=== PATIENT | female | born 1960 | race Caucasian/White ===

== ENCOUNTER 2021-04-13 07:44 | Emergency (ER) | payer OTHER ==
[~2021-04-13 07:44] MED LIST: CERTAGEN1 EACH PO; FERROUS SULFAT325 MG PO; FIORICET 50-301 EACH PO; LAXATIVE5 M1 PO; MOBIC7.5 MG PO; PERCOCET 5/3251 TAB PO; PRILOSEC20 MG PO; SYNTHROID75 MCG PO; ULTRAM50 MG PO; VITAMIN D250000 UNIT PO; XARELTO10 MG PO
[2021-04-13 08:37] LABS: BASOPHIL 0.8 % (0-2); EOSINOPHIL 1.8 % (0-5); LYMPHOCYTE 14.1 % (15-48); MCH 27.6 pg (25.0-31.0); MCHC 33.3 g/dL (32.0-36.0); MCV 82.9 fL (78.0-100.0); MONOCYTE 8.8 % (0-12); MPV 9.3 fL (6.0-9.5); NRBC 0; PLT 312 K/uL (150-400); RBC 5.43 M/uL (4.20-5.40); WBC 10.2 K/uL (4.0-10.5)
[2021-04-13 08:49] LABS: ALBUMIN 3.9 g/dL (3.4-5.0); BUN/CREAT RATIO (CALC) 22.7 RATIO; CREATININE 0.66 mg/dL (0.51-0.95); GLOBULIN (CALCULATION) 4.1 g/dL; POTASSIUM 4.1 mmol/L (3.5-5.1)
[2021-04-13] MEDS ORDERED: NORCO 5-325 TA1 EACH PO (09:50)
[2021-04-13] MEDS ORDERED: ONDANSETRON ODT4 MG PO (09:50)
== END 2021-04-13 12:41 | disposition home or self-care (01) ==
LOC: FER 07:44
PROVIDERS: Emergency Medicine
DX: K80.20 Calculus of gallbladder without cholecystitis without obstruction (principal)
CPT/HCPCS: 36415; 80053; 82150; 83690; 85025; J2270; J2405

== ENCOUNTER 2021-05-22 04:40 | Inpatient (IN) | payer OTHER ==
[~2021-05-22] VITALS: Ht 165.1 cm; Wt 91.8 kg
[~2021-05-22 04:40] MED LIST changes: +BAYER PLUS 500500 MG PO; +ESTRADIOL1 EA10 TD; +HCTZ25 MG PO; +NORCO 5-325 TA1 EACH PO; +OMEPRAZOLE40 MG PO; +ONDANSETRON ODT4 MG PO; +POTASSIUM20 MEQ/11 PO; -PRILOSEC20 MG PO; +SYNTHROID50 MCG PO; -SYNTHROID75 MCG PO
[2021-05-22 05:23] LABS: BASOPHIL 0.5 % (0-2); EOSINOPHIL 0.4 % (0-5); HCT 46.4 % (37.0-47.0); HGB 15.5 g/dl (12.5-16.0); LYMPHOCYTE 11.7 % (15-48); MCH 27.6 pg (25.0-31.0); MCHC 33.4 g/dL (32.0-36.0); MCV 82.6 fL (78.0-100.0); MONOCYTE 5.7 % (0-12); MPV 9.7 fL (6.0-9.5); NEUTROPHIL 81.4 % (41-80); NRBC 0; PLT 344 K/uL (150-400); RBC 5.62 M/uL (4.20-5.40); RDW 13.9 % (11.5-14.0); WBC 12.8 K/uL (4.0-10.5)
[2021-05-22 05:35] LABS: ALKALINE PHOSHATASE 166 U/L (46-116); ALT 429 U/L (14-59); AST 452 U/L (15-37); BILIRUBIN - TOTAL 2.5 mg/dL (0.2-1.0); BUN 16 mg/dL (7-18); BUN/CREAT RATIO (CALC) 25.4 RATIO; CHLORIDE 96 mmol/L (98-107); CO2 (BICARBONATE) 32 mmol/L (21-32); CREATININE 0.63 mg/dL (0.51-0.95); GLOBULIN (CALCULATION) 4.2 g/dL; GLUCOSE 103 mg/dL (74-106); LIPASE >2250 U/L (73-393); POTASSIUM 3.5 mmol/L (3.5-5.1); TOTAL PROTEIN 8.2 g/dL (6.4-8.2)
[2021-05-22 08:03] LABS: ALBUMIN 3.5 g/dL (3.4-5.0); BILIRUBIN - TOTAL 1.5 mg/dL (0.2-1.0); BUN/CREAT RATIO (CALC) 27.1 RATIO; CREATININE 0.59 mg/dL (0.51-0.95); GLOBULIN (CALCULATION) 3.6 g/dL; POTASSIUM 3.3 mmol/L (3.5-5.1); TOTAL PROTEIN 7.1 g/dL (6.4-8.2)
[2021-05-22] MEDS ORDERED: TRAMADOL HCL50 MG PO (12:47)
[2021-05-22] MEDS ORDERED: PRILOSEC20 MG PO (12:48)
[2021-05-23 06:50] LABS: BASOPHIL 1.3 % (0-2); EOSINOPHIL 2.5 % (0-5); HCT 38.3 % (37.0-47.0); HGB 12.5 g/dl (12.5-16.0); LYMPHOCYTE 27.4 % (15-48); MCH 27.5 pg (25.0-31.0); MCHC 32.6 g/dL (32.0-36.0); MCV 84.2 fL (78.0-100.0); MONOCYTE 8.2 % (0-12); MPV 9.4 fL (6.0-9.5); NEUTROPHIL 60.2 % (41-80); NRBC 0; PLT 254 K/uL (150-400); RBC 4.55 M/uL (4.20-5.40); RDW 14.4 % (11.5-14.0); WBC 6.8 K/uL (4.0-10.5)
[2021-05-23 07:20] LABS: ALBUMIN 2.8 g/dL (3.4-5.0); BILIRUBIN - TOTAL 0.7 mg/dL (0.2-1.0); BUN/CREAT RATIO (CALC) 22.1 RATIO; CREATININE 0.68 mg/dL (0.51-0.95); GLOBULIN (CALCULATION) 3.1 g/dL; POTASSIUM 3.3 mmol/L (3.5-5.1); TOTAL PROTEIN 5.9 g/dL (6.4-8.2)
[2021-05-24 07:00] LABS: EOSINOPHIL 3.3 % (0-5); HCT 38.7 % (37.0-47.0); HGB 12.4 g/dl (12.5-16.0); LYMPHOCYTE 29.5 % (15-48); MCH 26.8 pg (25.0-31.0); MCV 83.8 fL (78.0-100.0); MONOCYTE 7.9 % (0-12); MPV 9.8 fL (6.0-9.5); NEUTROPHIL 57.9 % (41-80); NRBC 0; PLT 281 K/uL (150-400); RBC 4.62 M/uL (4.20-5.40); RDW 14.5 % (11.5-14.0); WBC 6.8 K/uL (4.0-10.5)
[2021-05-24 07:31] LABS: ALBUMIN 2.9 g/dL (3.4-5.0); BILIRUBIN - TOTAL 0.6 mg/dL (0.2-1.0); BUN/CREAT RATIO (CALC) 14.1 RATIO; CREATININE 0.64 mg/dL (0.51-0.95); GLOBULIN (CALCULATION) 3.3 g/dL; POTASSIUM 3.5 mmol/L (3.5-5.1); TOTAL PROTEIN 6.2 g/dL (6.4-8.2)
[2021-05-26] MEDS ORDERED: COLACE100 MG PO (13:29)
[2021-05-26] MEDS ORDERED: MOTRIN600 MG PO (13:29)
[2021-05-26] MEDS ORDERED: OXY-IR 5MG5 MG PO (13:29)
[2021-05-26] MEDS ORDERED: ACETAMINOPHEN500 M1 PO (13:29)
[2021-05-26] MEDS ORDERED: ONDANSETRON ODT4 MG PO (14:03)
== END 2021-05-24 10:40 | disposition home or self-care (01) | DRG 444 ==
LOC: FER 04:40 → FMS 11:26
PROVIDERS: Internal Medicine; ADMIT Allergy & Immunology Allergy
DX: K80.01 Calculus of gallbladder with acute cholecystitis with obstruction (principal); K85.10 Biliary acute pancreatitis without necrosis or infection; Z20.822 Contact with and (suspected) exposure to COVID-19; I10 Essential (primary) hypertension; E78.5 Hyperlipidemia, unspecified; E03.9 Hypothyroidism, unspecified; K21.9 Gastro-esophageal reflux disease without esophagitis; M81.0 Age-related osteoporosis without current pathological fracture; M19.90 Unspecified osteoarthritis, unspecified site; Z96.651 Presence of right artificial knee joint; Z87.442 Personal history of urinary calculi; Z79.899 Other long term (current) drug therapy; Z90.710 Acquired absence of both cervix and uterus; Z98.890 Other specified postprocedural states
CPT/HCPCS: 36415; 74181; 80053; 83605; 83690; 84145; 85025; J1170; J1650; J2405; J2543; J2550; J7030; J7120; U0002

== ENCOUNTER → 2021-05-26 | Day surgery (SDC) | payer OTHER ==
[~2021-05-26] VITALS: Ht 165.1 cm; Wt 88.8 kg
[~2021-05-26] MED LIST changes: +ACETAMINOPHEN500 M1 PO; +COLACE100 MG PO; +MOTRIN600 MG PO; +OXY-IR 5MG5 MG PO; +PRILOSEC20 MG PO; +TRAMADOL HCL50 MG PO
[2021-05-26 10:11] LABS: ALBUMIN 3.6 g/dL (3.4-5.0); BILIRUBIN - TOTAL 0.6 mg/dL (0.2-1.0); BUN/CREAT RATIO (CALC) 12.3 RATIO; CREATININE 0.73 mg/dL (0.51-0.95); GLOBULIN (CALCULATION) 3.6 g/dL; POTASSIUM 3.9 mmol/L (3.5-5.1); TOTAL PROTEIN 7.2 g/dL (6.4-8.2)
== END | disposition home or self-care (01) ==
LOC: FAS 07:30
PROVIDERS: Student in an Organized Health Care Education/Training Program
DX: K80.10 Calculus of gallbladder with chronic cholecystitis without obstruction (principal); K85.10 Biliary acute pancreatitis without necrosis or infection; K66.0 Peritoneal adhesions (postprocedural) (postinfection); K21.9 Gastro-esophageal reflux disease without esophagitis; E03.9 Hypothyroidism, unspecified; Z98.51 Tubal ligation status; Z90.710 Acquired absence of both cervix and uterus; Z96.659 Presence of unspecified artificial knee joint
CPT/HCPCS: 36415; 80053; 82150; 83690; 93005; J0690; J1100; J1170; J1644; J1885; J2250; J2405; J2550; J2704; J2710; J3010; J7120; Q9967